=== PATIENT | female | born 1975 | race Caucasian/White ===

== ENCOUNTER → 2018-06-20 08:45 | Outpatient (CLI) | payer MEDICAID | END | disposition home or self-care (01) | LOC: D.US 08:30 | DX: R10.13 Epigastric pain (principal) ==

== ENCOUNTER → 2018-12-23 09:09 | Outpatient (CLI) | payer MEDICAID | END | disposition home or self-care (01) | LOC: D.CT 09:09 | PROVIDERS: ATTEND Family Medicine | DX: K76.89 Other specified diseases of liver (principal) ==